=== PATIENT | male | born 1950 | race Caucasian/White ===

== ENCOUNTER 2021-07-23 11:00 | Emergency (ER) | payer MEDICARE ==
[2021-07-23] MEDS ORDERED: Sodium Chloride 0.9% 10 ML Syringe FLUSH PRN (11:47)
[2021-07-23] MEDS ORDERED: Sodium Chloride 0.9% 2.5 ML Syringe FLUSH PRN (11:47)
[2021-07-23 12:58] LABS: BLOOD UREA NITROGEN,BUN 10 mg/dL (7.0-18.0); CARBON DIOXIDE,CO2 25.6 mmol/L (21.0-32.0); CHLORIDE,CL 102 mmol/L (98-107); GLUCOSE RANDOM 110 mg/dL (74-106); POTASSIUM,K 3.5 mmol/L (3.5-5.1); SODIUM,NA 138 mmol/L (136-148)
== END 2021-07-23 13:21 | disposition home or self-care (01) ==
LOC: MW.ED 11:00
DX: R05.9 Cough, unspecified (principal); I10 Essential (primary) hypertension; Z88.8 Allergy status to other drugs, medicaments and biological substances
CPT/HCPCS: 36415; 71045; 71045-26; 80053; 83735; 84484; 85025; 85379; 99284-25

== ENCOUNTER 2021-07-29 17:11 | Emergency (ER) | payer MEDICARE ==
[2021-07-29] MEDS ORDERED: Ketorolac 30 MG/ML SDV IVPUSH ONE (17:29)
[2021-07-29 17:49] LABS: BLOOD UREA NITROGEN,BUN 11 mg/dL (7.0-18.0); CARBON DIOXIDE,CO2 25.3 mmol/L (21.0-32.0); CHLORIDE,CL 103 mmol/L (98-107); GLUCOSE RANDOM 102 mg/dL (74-106); POTASSIUM,K 3.5 mmol/L (3.5-5.1); SODIUM,NA 141 mmol/L (136-148)
[2021-07-29 18:09] LABS: CORONAVIRUS COVID-19 NAA NEGATIVE (NEGATIVE); INFLUENZA A NAA NEGATIVE (NEGATIVE); INFLUENZA B NAA NEGATIVE (NEGATIVE)
== END 2021-07-29 18:37 | disposition home or self-care (01) ==
LOC: MW.ED 17:11
DX: R07.2 Precordial pain (principal); I10 Essential (primary) hypertension; Z88.8 Allergy status to other drugs, medicaments and biological substances; Z20.822 Contact with and (suspected) exposure to COVID-19
CPT/HCPCS: 0240U; 36415; 71045; 80053; 84484; 85025; 93005; 96374; 99285; J1885

== ENCOUNTER 2021-10-03 09:40 | Day surgery (SDC) | payer MEDICARE ==
[~2021-10-03 09:40] MED LIST: Lactated Ringers 1,000 ML IV SCH
[2021-10-03] MEDS ORDERED: Propofol 200 MG/20 ML SDV ONE ×2 (10:55→12:25)
[2021-10-03] MEDS ORDERED: fentaNYL 100 MCG/2 ML SDV ONE (10:56)
[2021-10-03] MEDS ORDERED: Lidocaine 2% 5 ML SDV ONE (10:56)
[2021-10-03] MEDS ORDERED: Phenylephrine 1% 10 MG/ML SDV ONE (12:15)
[2021-10-03] MEDS ORDERED: Lactated Ringers 1,000 ML IV SCH (13:00)
== END 2021-10-03 13:10 | disposition home or self-care (01) ==
LOC: MW.SDS 09:40
PROVIDERS: ATTEND Surgery
DX: R63.4 Abnormal weight loss (principal); D12.2 Benign neoplasm of ascending colon; K29.50 Unspecified chronic gastritis without bleeding; K20.90 Esophagitis, unspecified without bleeding; K31.89 Other diseases of stomach and duodenum; K22.70 Barrett's esophagus without dysplasia; B96.81 Helicobacter pylori [H. pylori] as the cause of diseases classified elsewhere; R07.89 Other chest pain; I10 Essential (primary) hypertension; F10.11 Alcohol abuse, in remission; R97.20 Elevated prostate specific antigen [PSA]; Z72.89 Other problems related to lifestyle; E78.00 Pure hypercholesterolemia, unspecified; Z88.5 Allergy status to narcotic agent; Z88.8 Allergy status to other drugs, medicaments and biological substances; Z87.891 Personal history of nicotine dependence
CPT/HCPCS: 00813; J2370; J2704; J3010; J7120

== ENCOUNTER 2022-07-03 11:31 | Day surgery (SDC) | payer MEDICARE ==
[2022-07-03] MEDS ORDERED: Propofol 200 MG/20 ML SDV ONE (12:28)
[2022-07-03] MEDS ORDERED: Lidocaine 2% 5 ML SDV ONE (12:28)
[2022-07-03] MEDS ORDERED: Lactated Ringers 1,000 ML IV SCH (13:45)
== END 2022-07-03 14:10 | disposition home or self-care (01) ==
LOC: MW.SDS 11:31
PROVIDERS: ATTEND Surgery
DX: K29.50 Unspecified chronic gastritis without bleeding (principal); K31.A0 Gastric intestinal metaplasia, unspecified; K29.00 Acute gastritis without bleeding; I10 Essential (primary) hypertension; E78.00 Pure hypercholesterolemia, unspecified; F17.210 Nicotine dependence, cigarettes, uncomplicated; N40.0 Benign prostatic hyperplasia without lower urinary tract symptoms; M19.90 Unspecified osteoarthritis, unspecified site; Z88.8 Allergy status to other drugs, medicaments and biological substances; Z79.899 Other long term (current) drug therapy; Z79.82 Long term (current) use of aspirin; Z98.890 Other specified postprocedural states
CPT/HCPCS: 43239; J2704; J7120; 00731; 88305; 88342; J3490